=== PATIENT | male | born 1985 | race Caucasian/White ===

== ENCOUNTER 2022-03-03 01:40 | Emergency (ER) | payer SELFPAY ==
[~2022-03-03] VITALS: Ht 193 cm; Wt 131.5 kg
[2022-03-03 02:23] VITALS: BP 149/88
--- NOTE | 2022-03-03 02:31 | NUR ---
Patient taken to bed 8.
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
--- NOTE | 2022-03-03 03:44 | NUR ---
Dr. Lopez examining patient.
--- NOTE | 2022-03-03 03:55 | NUR ---
LABS BEING COLLECTED AT BEDSIDE AND SENT
[2022-03-03 04:14] LABS: ANION GAP 13.7 (8-16); CARBON DIOXIDE 29.2 mmol/L (21-32); CREATININE 0.8 mg/dL (0.6-1.3); POTASSIUM 3.9 mmol/L (3.5-5.1)
--- NOTE | 2022-03-03 04:42 | NUR ---
PT RESTING IN BED. ON BEDSIDE MONITOR. HOB ELEVATED. PENDING DISPO
[2022-03-03] MEDS ORDERED: METF-346 PO (04:51)
[2022-03-03 05:04] VITALS: BP 127/75
--- NOTE | 2022-03-03 05:04 | NUR ---
Patient discharged with v/s stable. Written and verbal after care instructions given and explained. Patient alert, oriented and verbalized understanding of instructions. Ambulatory with steady gait. All questions addressed prior to discharge. ID band removed. Patient advised to follow up with PMD. Rx of GLUCOPHAGE given.
== END 2022-03-03 05:04 | disposition home or self-care (01) ==
LOC: MED 01:40
DX: E11.65 Type 2 diabetes mellitus with hyperglycemia (principal); F41.9 Anxiety disorder, unspecified; Z79.4 Long term (current) use of insulin; Z79.899 Other long term (current) drug therapy
CPT/HCPCS: 36415; 80048; 93005; 99284